=== PATIENT | female | born 1950 | race African-American/Black ===

== ENCOUNTER 2017-03-16 11:03 | Emergency (ER) | payer MEDICARE, OTHER ==
--- NOTE | 2017-03-16 12:41 | ER Document Report ---
HPI - HPI Patient complains to provider of: Right foot pain Onset: Yesterday Onset/Duration: Gradual Quality of pain: Achy Pain Level: 4 Context: Presents complaining of right foot pain that started yesterday. Patient complains of pain with swelling. Patient denies any fever or known injury. Patient does report a distant history of gout but that was over 10 years ago and she only had one previous episode. Associated Symptoms: Other - Foot tenderness and swelling. denies: Fever Exacerbated by: Standing, Movement, Walking Relieved by: Denies Similar symptoms previously: No Recently seen / treated by doctor: No - ROS ROS below otherwise negative: Yes Systems Reviewed and Negative: Yes All other systems reviewed and negative - CONSTITUTIONAL Constitutional: DENIES: Fever, Chills - NEURO Neurology: DENIES: Weakness - GASTROINTESTINAL Gastrointestinal: DENIES: Nausea - MUSCULOSKELETAL Musculoskeletal: REPORTS: Extremity pain, Swelling - DERM Skin Color: Normal Skin Problems: None Past Medical History - General Information source: Patient - Social History Smoking Status: Never Smoker Frequency of alcohol use: None Drug Abuse: None Occupation: none Lives with: Family Family History: Reviewed & Not Pertinent Patient has suicidal ideation: No Patient has homicidal ideation: No - Past Medical History Cardiac Medical History: Reports: Hx Hypercholesterolemia, Hx Hypertension Denies: Hx Coronary Artery Disease, Hx Heart Attack Pulmonary Medical History: Denies: Hx Asthma, Hx Bronchitis, Hx COPD, Hx Pneumonia Neurological Medical History: Denies: Hx Cerebrovascular Accident, Hx Seizures Endocrine Medical History: Reports: Hx Diabetes Mellitus Type 2 Renal/ Medical History: Denies: Hx Peritoneal Dialysis GI Medical History: Denies: Hx Hepatitis, Hx Hiatal Hernia, Hx Ulcer Musculoskeltal Medical History: Reports Hx Arthritis Infectious Medical History: Denies: Hx Hepatitis Past Surgical History: Denies: Hx Hysterectomy, Hx Mastectomy, Hx Open Heart Surgery, Hx Pacemaker - Immunizations Hx Diphtheria, Pertussis, Tetanus Vaccination: Yes Vertical Provider Document - CONSTITUTIONAL Agree With Documented VS: Yes Exam Limitations: No Limitations General Appearance: WD/WN, No Apparent Distress - INFECTION CONTROL TRAVEL OUTSIDE OF THE [place] IN LAST 30 DAYS: No - HEENT HEENT: Atraumatic, Normocephalic - NECK Neck: Normal Inspection - RESPIRATORY Respiratory: Breath Sounds Normal, No Respiratory Distress O2 Sat by Pulse Oximetry: 96 - CARDIOVASCULAR Cardiovascular: Regular Rate, Regular Rhythm, No Murmur Pulses: Normal: Dorsalis pedis - BACK Back: Normal Inspection - MUSCULOSKELETAL/EXTREMETIES Musculoskeletal/Extremeties: MAEW, Tender - right midfoot tenderness, normal skin color and temperature, Edema - 1+ edema right midfoot - NEURO Level of Consciousness: Awake, Alert, Appropriate Motor/Sensory: No Motor Deficit - DERM Integumentary: Warm, Dry, No Rash Course - Vital Signs Vital signs: Temp Pulse Resp BP Pulse Ox 98.0 F 76 20 141/71 H 96 03/16/17 11:09 03/16/17 11:09 03/16/17 11:09 03/16/17 11:09 03/16/17 11:09 - Laboratory Result Diagrams: 03/16/17 12:50 03/16/17 12:50 Laboratory results interpreted by me: 03/16/17 14:36 Labs- Entire Visit 03/16/17 03/16/17 12:50 12:50 WBC 9.5 RBC 3.79 Hgb 10.7 L Hct 32.7 L MCV 86 MCH 28.2 MCHC 32.7 RDW 14.7 H Plt Count 250 Seg Neutrophils % 68.3 Lymphocytes % 22.7 Monocytes % 5.9 Eosinophils % 2.3 Basophils % 0.8 Absolute Neutrophils 6.5 Absolute Lymphocytes 2.2 Absolute Monocytes 0.6 Absolute Eosinophils 0.2 Absolute Basophils 0.1 ESR 46 H Sodium 145.2 H Potassium 4.1 Chloride 103 Carbon Dioxide 28 Anion Gap 14 BUN 25 H Creatinine 1.10 Est GFR ( Amer) > 60 Est GFR (Non-Af Amer) 50 L Glucose 246 H Uric Acid 9.5 H Calcium 9.5 C-Reactive Protein 21.0 H 03/16/17 20:56 - Diagnostic Test Radiology reviewed: Reports reviewed Discharge - Discharge Clinical Impression: Foot pain, right, Elevated blood pressure reading Gout attack Qualifiers: Gout site: foot Gout etiology: unspecified cause Laterality: right Qualified Code(s): M10.9 - Gout, unspecified Condition: Stable Disposition: HOME, SELF-CARE Instructions: Gout ([facility]), Gout Diet ([facility]), Steroid Medication, Oral Narcotic Medication ([facility]) Additional Instructions: return as needed for any new or worsening symptoms follow up with your primary care provider, Dr Donnelly, for a recheck Your blood pressure was mildly elevated today, have your primary doctor recheck this next week. Prescriptions: Hydrocodone/Acetaminophen [[place] 5-325 Tablet] 1 each PO Q6 PRN #20 tablet PRN Reason: Prednisone [Deltasone 20 mg Tablet] 2 tab PO DAILY 5 Days Forms: Elevated Blood Pressure
[2017-03-16 13:08] LABS: ABSOLUTE BASOPHILS # (AUTO) 0.1 10^3/uL (0.0-0.2); ABSOLUTE EOSINOPHILS # (AUTO) 0.2 10^3/uL (0.0-0.6); ABSOLUTE LYMPHOCYTES (AUTO) 2.2 10^3/uL (0.5-4.7); ABSOLUTE MONOCYTES (AUTO) 0.6 10^3/uL (0.1-1.4); ABSOLUTE NEUT (AUTO) 6.5 10^3/uL (1.7-8.2); BASOPHILS % (AUTO) 0.8 % (0-2); EOSINOPHILS % (AUTO) 2.3 % (0-6); HEMATOCRIT 32.7 % (36.0-47.0); HEMOGLOBIN 10.7 g/dL (12.0-15.5); HGB HCT DIFFERENCE -0.6; LYMPHOCYTES % (AUTO) 22.7 % (13-45); MEAN CORPUSCULAR HEMOGLOBIN 28.2 pg (27.0-33.4); MEAN CORPUSCULAR HGB CONC 32.7 g/dL (32.0-36.0); MEAN CORPUSCULAR VOLUME 86 fl (80-97); MONOCYTES % (AUTO) 5.9 % (3-13); RED BLOOD COUNT 3.79 10^6/uL (3.72-5.28); RED CELL DISTRIBUTION WIDTH 14.7 % (11.5-14.0); SEGMENTED NEUTROPHILS % (AUTO) 68.3 % (42-78); WHITE BLOOD COUNT 9.5 10^3/uL (4.0-10.5)
--- NOTE | 2017-03-16 13:22 | RADIOLOGY REPORT (SQ) ---
EXAM DESCRIPTION: FOOT RIGHT COMPLETE COMPLETED DATE/TIME: 03/16/2017 1:06 pm REASON FOR STUDY: r foot pain, swelling COMPARISON: None. NUMBER OF VIEWS: Three views. TECHNIQUE: AP, lateral and oblique radiographic images acquired of the right foot. LIMITATIONS: None. FINDINGS: MINERALIZATION: Normal. BONES: No acute fracture or dislocation. No worrisome bone lesions. Small dorsal plantar calcaneal spurs JOINTS: No bulky bony spurring or advanced osteoarthritis SOFT TISSUES: Diffuse dorsal forefoot soft tissue swelling without radiopaque foreign body. Small am ount of air under the great toenail OTHER: No other significant finding. IMPRESSION: Diffuse dorsal forefoot soft tissue swelling. No fracture. Small amount of air under t he right great toenail TECHNICAL DOCUMENTATION: JOB ID: [id number] [employer]- All Rights Reserved
[2017-03-16 13:25] LABS: ANION GAP 14 (5-19); BLOOD UREA NITROGEN 25 mg/dL (7-20); CALCIUM 9.5 mg/dL (8.4-10.2); CARBON DIOXIDE 28 mmol/L (22-30); CHLORIDE 103 mmol/L (98-107); GLUCOSE 246 mg/dL (75-110); POTASSIUM 4.1 mmol/L (3.6-5.0); SODIUM 145.2 mmol/L (137-145); URIC ACID 9.5 mg/dL (2.5-7.5)
[2017-03-16 13:44] LABS: ERYTHROCYTE SEDIMENTATION RATE 46 mm/hr (0-30)
[2017-03-16] MEDS ORDERED: PREDNISONE 20 MG TABLET PO ONE (14:31)
[2017-03-16 15:07] VITALS: BP 163/78
== END 2017-03-16 15:05 | disposition home or self-care (01) ==
LOC: ER 11:03
DX: M79.671 Pain in right foot (principal); M10.9 Gout, unspecified; R03.0 Elevated blood-pressure reading, without diagnosis of hypertension; M79.89 Other specified soft tissue disorders
CPT/HCPCS: 99283; 36415; 84550; 85025; 85652; 86140; 80048; 73630; A9270; J7512

== ENCOUNTER 2018-02-28 17:44 | Emergency (ER) | payer MEDICARE, OTHER ==
[2018-02-28 17:58] VITALS: BP 155/69
--- NOTE | 2018-02-28 18:50 | ER Document Report ---
ED General - General Chief Complaint: Feet Swelling Stated Complaint: FOOT PAIN Time Seen by Provider: 02/28/18 18:37 Notes: 67-year-old female PMH gout here with complaints of right foot pain and swelling over the past few days. It initially started with pain which has progressively worsened. The swelling is mild and is not as much of a concern for her as the pain. She took a hydrocodone but it did not help with the pain. She went to an urgent care facility where they performed an x-ray and the radiology read advised that the soft tissues were abnormal and that there may be a possible abscess. She has not had any fevers chills drainage. She did not want to come here and advises she thought it was gout all along. While she was at the urgent care facility, they did prescribe her steroids and diclofenac. TRAVEL OUTSIDE OF THE [place] IN LAST 30 DAYS: No - Related Data Allergies/Adverse Reactions: shellfish derived Allergy (Severe, Verified 02/28/18 17:48) Anaphylaxis shrimp Allergy (Severe, Uncoded 02/28/18 17:48) throat closes/lip swells Past Medical History - Social History Smoking Status: Unknown if Ever Smoked Family History: Reviewed & Not Pertinent - Past Medical History Cardiac Medical History: Reports: Hx Hypercholesterolemia, Hx Hypertension Denies: Hx Coronary Artery Disease, Hx Heart Attack Pulmonary Medical History: Denies: Hx Asthma, Hx Bronchitis, Hx COPD, Hx Pneumonia Neurological Medical History: Denies: Hx Cerebrovascular Accident, Hx Seizures Endocrine Medical History: Reports: Hx Diabetes Mellitus Type 2 Renal/ Medical History: Denies: Hx Peritoneal Dialysis GI Medical History: Denies: Hx Hepatitis, Hx Hiatal Hernia, Hx Ulcer Musculoskeltal Medical History: Reports Hx Arthritis Infectious Medical History: Denies: Hx Hepatitis Past Surgical History: Reports: Hx Cholecystectomy, Hx Orthopedic Surgery - LTKR. Denies: Hx Hysterectomy, Hx Mastectomy, Hx Open Heart Surgery, Hx Pacemaker - Immunizations Hx Diphtheria, Pertussis, Tetanus Vaccination: Yes Review of Systems - Review of Systems Notes: See history of present illness for pertinent positive review of systems; otherwise all review of systems have been reviewed and are negative Physical Exam - Vital signs Vitals: Temp Pulse Resp BP Pulse Ox 98.7 F 84 16 155/69 H 97 02/28/18 17:56 02/28/18 17:56 02/28/18 17:56 02/28/18 17:56 02/28/18 17:56 - Notes Notes: PHYSICAL EXAMINATION: GENERAL: Well-appearing and in no acute distress. HEAD: Atraumatic, normocephalic. EYES: Pupils equal round and reactive to light, extraocular movements intact, sclera anicteric, conjunctiva are normal. ENT: nares patent, oropharynx clear without exudates. Moist mucous membranes. NECK: Normal range of motion, supple without lymphadenopathy LUNGS: CTAB and equal. No wheezes rales or rhonchi. HEART: Regular rate and rhythm without murmurs ABDOMEN: Soft, no tenderness. No facial grimacing/wincing upon palpation. No guarding, no rebound. EXTREMITIES: Normal range of motion, No cyanosis. To the dorsal surface of the right foot, there is minimal swelling with no appreciable erythema however there is mild to moderate tenderness to palpation diffusely but I do not appreciate any fluctuance induration drainage consistent with infectious process NEUROLOGICAL: Cranial nerves grossly intact. Normal sensory/motor exams. PSYCH: Normal mood, normal affect. SKIN: Warm, Dry, normal turgor, no rashes or lesions noted Course - Re-evaluation Re-evalutation: 02/28/18 18:50 MEDICAL DECISION MAKING: Concern for gouty arthritis At the time of this visit's physical exam, there are no signs concerning for infectious etiology It seems the urgent care also agreed given they prescribed her steroids diclofenac Nonetheless, I did offer CT scan with IV contrast for further evaluation Both her and her daughter declined stating they would rather go home Discussed that we would welcome them back and happily see them if they change their mind Patient understands and agrees to the plan of care 02/28/18 18:52 - Vital Signs Vital signs: Temp Pulse Resp BP Pulse Ox 98.7 F 84 16 155/69 H 97 02/28/18 17:56 02/28/18 17:56 02/28/18 17:56 02/28/18 17:56 02/28/18 17:56 Discharge - Discharge Clinical Impression: Foot pain, right Condition: Good Disposition: HOME, SELF-CARE Additional Instructions: You were seen in the emergency department at [facility]. You declined a CT scan with IV contrast for further evaluation of your foot pain. Take the medications that were prescribed to you by the urgent care facility. Please followup with your primary physician in the next few days for further management/evaluation. Please return to the emergency department for worsening of symptoms or any symptom that you deem to be concerning or life-threatening. Thank you for allowing us to be part of your care.
== END 2018-02-28 18:51 | disposition home or self-care (01) ==
LOC: ER 17:44
DX: M79.89 Other specified soft tissue disorders (principal); M79.671 Pain in right foot; Z90.49 Acquired absence of other specified parts of digestive tract; Z96.652 Presence of left artificial knee joint; Z91.013 Allergy to seafood
CPT/HCPCS: 99283

== ENCOUNTER 2019-12-09 14:43 | Emergency (ER) | payer MEDICARE, OTHER ==
--- NOTE | 2019-12-09 16:04 | ER Document Report ---
ED Medical Screen (RME) - General Chief Complaint: High Blood Sugar Stated Complaint: DR LEONARDO- HIGH BLOOD SUGAR Time Seen by Provider: 12/09/19 15:52 Notes: Patient is a 69-year-old female with a history of congestive heart failure, type 2 diabetes, high cholesterol, hypertension who presents emergency department with a chief complaint of elevated blood sugar. Patient reports 2 days ago being diagnosed with pneumonia and influenza. Patient reports she has been on prednisone for 2 days. Patient reports over the past 2 days her sugars have increased. Patient to go to the urgent care today for reevaluation and was told her blood sugar was 587 was sent here for further management. Patient does take glimepiride 8 mg daily, did take a dose today. Patient is also currently on Levaquin for the pneumonia. Patient denies fever. TRAVEL OUTSIDE OF THE [place] IN LAST 30 DAYS: No - Related Data Allergies/Adverse Reactions: shellfish derived Allergy (Severe, Verified 02/28/18 17:48) Anaphylaxis shrimp Allergy (Severe, Uncoded 02/28/18 17:48) throat closes/lip swells Past Medical History - Social History Frequency of alcohol use: None Drug Abuse: None - Past Medical History Cardiac Medical History: Reports: Hx Hypercholesterolemia, Hx Hypertension Denies: Hx Coronary Artery Disease, Hx Heart Attack Pulmonary Medical History: Denies: Hx Asthma, Hx Bronchitis, Hx COPD, Hx Pneumonia Neurological Medical History: Denies: Hx Cerebrovascular Accident, Hx Seizures Endocrine Medical History: Reports: Hx Diabetes Mellitus Type 2 Renal/ Medical History: Denies: Hx Peritoneal Dialysis GI Medical History: Denies: Hx Hepatitis, Hx Hiatal Hernia, Hx Ulcer Musculoskeltal Medical History: Reports Hx Arthritis Infectious Medical History: Denies: Hx Hepatitis Past Surgical History: Reports: Hx Cholecystectomy, Hx Orthopedic Surgery - LTKR. Denies: Hx Hysterectomy, Hx Mastectomy, Hx Open Heart Surgery, Hx Pacemaker - Immunizations Hx Diphtheria, Pertussis, Tetanus Vaccination: Yes Physical Exam - Vital signs Vitals: Temp Pulse Resp BP Pulse Ox 97.7 F 74 20 144/69 H 98 12/09/19 15:44 12/09/19 15:44 12/09/19 15:44 12/09/19 15:44 12/09/19 15:44 - Cardiovascular Rhythm: Regular Heart sounds: Normal auscultation, S1 appreciated, S2 appreciated Course - Re-evaluation Re-evalutation: 12/09/19 16:03 Patient is not hypoxic, tachycardic here in triage. Will order basic labs, VBG and obtain an Accu-Chek. I have greeted and performed a rapid initial assessment of this patient. A comprehensive ED assessment and evaluation of the patient, analysis of test results and completion of the medical decision making process will be conducted by additional ED providers. - Vital Signs Vital signs: Temp Pulse Resp BP Pulse Ox 97.7 F 74 20 144/69 H 98 12/09/19 15:44 12/09/19 15:44 12/09/19 15:44 12/09/19 15:44 12/09/19 15:44
--- NOTE | 2019-12-09 16:26 | RADIOLOGY REPORT (SQ) ---
12 EXAM DESCRIPTION: CHEST 2 VIEWS COMPLETED DATE/TIME: 12/09/2019 4:17 pm REASON FOR STUDY: RECENT PNEUMONIA, CONTINUED COUGH COMPARISON: 09/30/2010 EXAM PARAMETERS: NUMBER OF VIEWS: two views TECHNIQUE: Digital Frontal and Lateral radiographic views of the chest acquired. RADIATION DOSE: NA LIMITATIONS: none FINDINGS: LUNGS AND PLEURA: There is a small right pleural effusion. Minimal asymmetric airspace di sease in the right base either atelectasis or developing pneumonia. No pneumothorax. MEDIASTINUM AND HILAR STRUCTURES: No masses or contour abnormalities. HEART AND VASCULAR STRUCTURES: Heart normal size. No evidence for failure. BONES: No acute findings. HARDWARE: None in the chest. OTHER: No other significant finding. IMPRESSION: Small right effusion. Minimal residual airspace disease in the right base either atelec tasis or pneumonia. TECHNICAL DOCUMENTATION: JOB ID: [id number] 2010 [employer]- All Rights Reserved Reading location - IP/workstation name: [email or web address]
[2019-12-09] MEDS ORDERED: NORMAL SALINE 500 ML IV ONE ×2 (17:05→18:32)
[2019-12-09 17:34] LABS: ABSOLUTE MONOCYTES (AUTO) 0.6 10^3/uL (0.1-1.4); ABSOLUTE NEUT (AUTO) 4.5 10^3/uL (1.7-8.2); BASOPHILS % (AUTO) 0.1 % (0-2); HEMATOCRIT 33.5 % (36.0-47.0); HEMOGLOBIN 11.2 g/dL (12.0-15.5); LYMPHOCYTES % (AUTO) 16.2 % (13-45); MEAN CORPUSCULAR HEMOGLOBIN 29.8 pg (27.0-33.4); MEAN CORPUSCULAR HGB CONC 33.6 g/dL (32.0-36.0); MEAN CORPUSCULAR VOLUME 89 fl (80-97); MONOCYTES % (AUTO) 9.4 % (3-13); PLATELET COUNT 222 10^3/uL (150-450); RED BLOOD COUNT 3.77 10^6/uL (3.72-5.28); RED CELL DISTRIBUTION WIDTH 13.6 % (11.5-14.0); SEGMENTED NEUTROPHILS % (AUTO) 74.3 % (42-78); TOTAL CELLS COUNTED % (AUTO) 100 %; WHITE BLOOD COUNT 6.1 10^3/uL (4.0-10.5)
[2019-12-09 17:43] LABS: APPEARANCE,URINE CLEAR; BILIRUBIN,URINE NEGATIVE (NEGATIVE); COLOR,URINE YELLOW; GLUCOSE, URINE >=500 mg/dL (NEGATIVE); KETONES,URINE NEGATIVE (NEGATIVE); LEUKOCYTE ESTERASE,URINE NEGATIVE (NEGATIVE); NITRITE,URINE NEGATIVE (NEGATIVE); PROTEIN,URINE NEGATIVE (NEGATIVE); UROBILINOGEN,URINE NEGATIVE mg/dL (<2.0)
[2019-12-09 17:51] LABS: VENOUS BLOOD BASE EXCESS -0.2 mmol/L; VENOUS BLOOD HCO3 26.5 mmol/L (20-32); VENOUS BLOOD PCO2 50.2 mmHg (35-63); VENOUS BLOOD PH 7.34 (7.30-7.42)
[2019-12-09 17:59] LABS: ALBUMIN 4.4 g/dL (3.5-5.0); ALKALINE PHOSPHATASE 92 U/L (38-126); ANION GAP 15 (5-19); ASPARTATE AMINO TRANSFERASE 22 U/L (14-36); BILIRUBIN,TOTAL 0.3 mg/dL (0.2-1.3); BLOOD UREA NITROGEN 52 mg/dL (7-20); CALCIUM 9.2 mg/dL (8.4-10.2); CARBON DIOXIDE 27 mmol/L (22-30); CHLORIDE 93 mmol/L (98-107); POTASSIUM 4.7 mmol/L (3.6-5.0); TOTAL PROTEIN 7.6 g/dL (6.3-8.2)
[2019-12-09 18:08] LABS: GLUCOSE 470 mg/dL (75-110)
[2019-12-09 20:45] VITALS: BP 140/63
[2019-12-09] MEDS ORDERED: INSULIN REG, HUMAN 100 UNIT/ML 3 ML VIAL (PYX) IV ONE (23:18)
--- NOTE | 2019-12-09 23:19 | ER Document Report ---
ED Blood Sugar Problem - General Chief Complaint: High Blood Sugar Stated Complaint: DR REFERRED- HIGH BLOOD SUGAR Time Seen by Provider: 12/09/19 15:52 Primary Care Provider: CRISTINA SOLIZ MD [Primary Care Provider] - Follow up as needed Mode of Arrival: Ambulatory Information source: Patient Notes: Patient is a 69-year-old female with a history of congestive heart failure, type 2 diabetes, high cholesterol, hypertension who presents emergency department with a chief complaint of elevated blood sugar. Patient reports 2 days ago being diagnosed with pneumonia and influenza. Patient reports she has been on prednisone for 2 days. Patient reports over the past 2 days her sugars have increased. Patient to go to the urgent care today for reevaluation and was told her blood sugar was 587 was sent here for further management. Patient does take glimepiride 8 mg daily, did take a dose today. Patient is also currently on Levaquin for the pneumonia. Patient denies fever. TRAVEL OUTSIDE OF THE [place] IN LAST 30 DAYS: No - Related Data Allergies/Adverse Reactions: shellfish derived Allergy (Severe, Verified 02/28/18 17:48) Anaphylaxis shrimp Allergy (Severe, Uncoded 02/28/18 17:48) throat closes/lip swells Past Medical History - General Information source: Patient - Social History Smoking Status: Never Smoker Frequency of alcohol use: None Drug Abuse: None Family History: Reviewed & Not Pertinent Patient has suicidal ideation: No Patient has homicidal ideation: No - Past Medical History Cardiac Medical History: Reports: Hx Hypercholesterolemia, Hx Hypertension Denies: Hx Coronary Artery Disease, Hx Heart Attack Pulmonary Medical History: Denies: Hx Asthma, Hx Bronchitis, Hx COPD, Hx Pneumonia Neurological Medical History: Denies: Hx Cerebrovascular Accident, Hx Seizures Endocrine Medical History: Reports: Hx Diabetes Mellitus Type 2 Renal/ Medical History: Denies: Hx Peritoneal Dialysis GI Medical History: Denies: Hx Hepatitis, Hx Hiatal Hernia, Hx Ulcer Musculoskeletal Medical History: Reports Hx Arthritis Infectious Medical History: Denies: Hx Hepatitis Past Surgical History: Reports: Hx Cholecystectomy, Hx Orthopedic Surgery - LTKR. Denies: Hx Hysterectomy, Hx Mastectomy, Hx Open Heart Surgery, Hx Pacemaker - Immunizations Hx Diphtheria, Pertussis, Tetanus Vaccination: Yes Review of Systems - Review of Systems Constitutional: See HPI Respiratory: See HPI -: Yes All other systems reviewed and negative Physical Exam - Vital signs Vitals: Temp Pulse Resp BP Pulse Ox 97.7 F 74 20 144/69 H 98 12/09/19 15:44 12/09/19 15:44 12/09/19 15:44 12/09/19 15:44 12/09/19 15:44 - Notes Notes: PHYSICAL EXAMINATION: GENERAL: Well-appearing, well-nourished and in no acute distress. HEAD: Atraumatic, normocephalic. EYES: Pupils equal round and reactive to light, extraocular movements intact, conjunctiva are normal. ENT: Nares patent, oropharynx clear without exudates. Moist mucous membranes. NECK: Normal range of motion, supple without lymphadenopathy LUNGS: Breath sounds clear to auscultation bilaterally and equal. No wheezes rales or rhonchi. HEART: Regular rate and rhythm without murmurs ABDOMEN: Soft, nontender, nondistended abdomen. No guarding, no rebound. No masses appreciated. Female : deferred Musculoskeletal: Normal range of motion, no pitting or edema. No cyanosis. NEUROLOGICAL: Cranial nerves grossly intact. Normal speech, normal gait. Normal sensory, motor exams PSYCH: Normal mood, normal affect. SKIN: Warm, Dry, normal turgor, no rashes or lesions noted. Course - Re-evaluation Re-evalutation: Patient appears well, nontoxic, labs as recorded below. Patient does have hyperglycemia however no evidence of acidosis. Patient has been taking prednisone for the last 2 days which is likely the cause of her hyperglycemia. Patient reports that her blood sugar usually runs in the 130 range. She is not on insulin. She does have a history of CHF so we had to be cautious with the amount of fluid she was given. Her blood sugar has come down slightly however when I went to see her she was eating cheese crackers with peanut butter which could also be the cause of her blood sugar not coming down as much as I would have hoped. I recommended after speaking with my attending giving 5 units of regular insulin to assist in her blood sugar coming down, patient and her daughter adamantly declined this stating that she could follow-up with her reed or wind instrument repairer tomorrow. Patient is stable for discharge home at this time. - Vital Signs Vital signs: Temp Pulse Resp BP Pulse Ox 97.4 F 74 16 140/63 H 97 12/09/19 20:33 12/09/19 20:33 12/09/19 20:33 12/09/19 20:33 12/09/19 20:33 - Laboratory Result Diagrams: 12/09/19 16:50 12/09/19 16:50 Laboratory results interpreted by me: 12/09/19 12/09/19 12/09/19 16:45 16:50 16:50 Hgb 11.2 L Hct 33.5 L Sodium 134.6 L Chloride 93 L BUN 52 H Creatinine 2.02 H Est GFR ( Amer) 30 L Est GFR (MDRD) Non-Af 24 L Glucose 470 H* POC Glucose 473 H* Urine Glucose (UA) 12/09/19 12/09/19 16:50 22:52 Hgb Hct Sodium Chloride BUN Creatinine Est GFR ( Amer) Est GFR (MDRD) Non-Af Glucose POC Glucose 449 H* Urine Glucose (UA) >=500 H Discharge - Discharge Clinical Impression: Hyperglycemia Condition: Stable Disposition: HOME, SELF-CARE Additional Instructions: Your blood sugars were elevated today. There is no evidence of any dangerous conditions such as diabetic ketoacidosis. I feel that your blood sugars are elevated likely due to the prednisone use and the fact that you have an underlying infection (pneumonia). Please continue to take Levaquin as prescribed by previous provider for your pneumonia. Stop taking the prednisone. Please call and follow-up with your reed or wind instrument repairer as discussed. Return to the emergency department for any new or worsening concerns. Referrals: CRISTINA SOLIZ MD [Primary Care Provider] - Follow up as needed
== END 2019-12-09 23:38 | disposition home or self-care (01) ==
LOC: ER 14:43
DX: E11.65 Type 2 diabetes mellitus with hyperglycemia (principal); I50.9 Heart failure, unspecified; I11.0 Hypertensive heart disease with heart failure; Z79.2 Long term (current) use of antibiotics; Z79.899 Other long term (current) drug therapy
CPT/HCPCS: 99285; 96360; 96361; 36415; 82962; 85025; 80053; 81001; 82803; 71046; J7040